=== PATIENT | female | born 1990 | race Caucasian/White ===

== ENCOUNTER 2020-11-01 13:30 | Inpatient (IN) | payer MEDICAID ==
[2020-11-01] VITALS (23 sets, daily range): BP systolic 103–145; BP diastolic 60–88; PULSE 81–103; TEMP 97.9–98.3
[~2020-11-01] VITALS: Ht 162.6 cm; Wt 86.8 kg
[2020-11-01 13:21] LABS: BASO % 0.3 % (0.0-2.0); EOS % 0.5 % (0-4.0); GRAN # 5.2 (1.4-6.5); GRAN % 69.8 % (42.2-75.2); HEMOGLOBIN 13.2 g/dl (12.5-16.0); LYMPH # 1.6 (1.2-3.4); LYMPH % 21.7 % (20.0-51.0); MEAN CELL VOLUME 91 fl (80.0-100.0); MEAN CORPUSCULAR HEMOGLOBIN 31 pg (27.0-31.0); MEAN CORPUSCULAR HGB CONC 34 g/dl (33.0-37.0); MEAN PLATELET VOLUME 11.3 fl (7.4-10.4); MONO # 0.5 (0.1-0.6); MONO % 6.8 % (1.7-9.3); PLATELET COUNT 163 K/mm3 (130-400); RED BLOOD COUNT 4.29 M/mm3 (4.10-5.30); REDCELL DISTRIBUTION WIDTH-CV 14.4 % (11.5-14.5)
[~2020-11-01 13:30] MED LIST: MOTRIN 600600 MG/TAB PO; PERCOCET 325 MG1 TA2 PO; PRENATAL1 TA1
[2020-11-02 04:00] VITALS: BP 121/90; PULSE 85; TEMP 97.6
[2020-11-02 09:27] VITALS: BP 131/84; PULSE 98; TEMP 98.3
[2020-11-02] MEDS ORDERED: MOTRIN 600600 MG/TAB PO (10:08)
[2020-11-02 12:30] VITALS: BP 126/84; PULSE 97; TEMP 98.3
== END 2020-11-02 17:44 | disposition home or self-care (01) | DRG 807 ==
LOC: LDRO 13:30 → LDR 13:50 → OB 18:45
PROVIDERS: ADMIT Obstetrics & Gynecology
PROC: 10E0XZZ Delivery of Products of Conception, External Approach (ICD-10-PCS; principal; 2020-11-01)
PROC: 0KQM0ZZ Repair Perineum Muscle, Open Approach (ICD-10-PCS; 2020-11-01)
DX: O66.0 Obstructed labor due to shoulder dystocia (principal); Z37.0 Single live birth; Z3A.39 39 weeks gestation of pregnancy; O70.1 Second degree perineal laceration during delivery
CPT/HCPCS: J2590; J2795; J7120